=== PATIENT | male | born 1970 | race Caucasian/White ===

== ENCOUNTER → 2023-09-06 | Day surgery (SDC) | payer OTHER ==
[2023-09-04 09:11] VITALS: BMI 22.7
[~2023-09-06] MED LIST: ALPRAZolam 0.25 MG TAB PO PRN; ASPIRIN 325 MG TAB PO STA; HEPARIN SODIUM 1,000 UN/ML (10ML VL) ONE; HEPARIN SODIUM,PORCINE (1 ML) 2,500 UNIT in SODIUM CHLORIDE 0.9% 250 ML IRRIGATION PRN; HEPARIN SODIUM,PORCINE 10,000 UNIT in SODIUM CHLORIDE 0.9% 1,000 ML IRRIGATION PRN; LIDOCAINE 1% INJ 10MG/ML (20 ML MDV) ONE; NITROGLYCERIN SL TABS 0.4 MG TAB SUBLINGUAL PRN; VERAPAMIL 2.5 MG/ML 2 ML AMP ONE; fentaNYL (PF) 50 MCG/ML 2 ML AMP ONE
[2023-09-06] MEDS: ALPRAZolam 0.5 MG TAB PO PRN (09:04)
[2023-09-06] MEDS: SODIUM CHLORIDE 0.9% 1,000 ML in EMPTY BAG 1 BAG IV SCH (09:08)
[2023-09-06 09:25] LABS: Basophils % (A) 1 %; Eosinophils # (A) 0.1 k/uL (0-0.7); Eosinophils % (A) 2 %; HCT 47.3 % (39.0-53.0); Lymphocytes # (A) 1.4 k/uL (1.0-4.8); Lymphocytes % (A) 24 %; MCH 32.3 pg (25.0-35.0); MCHC 33.9 g/dL (31.0-37.0); MCV 95.3 fL (80.0-100.0); Mean Platelet Volume 7.8; Monocytes # (A) 0.5 k/uL (0-1.0); Monocytes % (A) 9 %; Neutrophils # (A) 3.5 k/uL (1.3-7.7); Neutrophils % (A) 62 %; Platelet Count 256 k/uL (150-450); RBC 4.96 m/uL (4.30-5.90); RDW 12.4 % (11.5-15.5); WBC 5.7 k/uL (3.8-10.6)
[2023-09-06 09:40] VITALS: TEMP 98.1
[2023-09-06 09:45] LABS: African American GFR (CKD) >90 (>60 ml/min/1.73 sqM); Anion Gap 5 mmol/L; Blood Urea Nitrogen 14 mg/dL (9-20); Calcium 9.5 mg/dL (8.4-10.2); Carbon Dioxide 28 mmol/L (22-30); Chloride 105 mmol/L (98-107); Glucose 99 mg/dL (74-99); Non-African American GFR(CKD) >90 (>60 ml/min/1.73 sqM); Sodium 138 mmol/L (137-145)
[2023-09-06] MEDS: fentaNYL (PF) 50 MCG/ML 2 ML AMP IVP ONE (10:30)
[2023-09-06] MEDS: MIDAZOLAM 2 MG/2 ML VIAL IVP ONE (10:30)
[2023-09-06] MEDS: LIDOCAINE 1% INJ 10MG/ML (30 ML VIAL-PF) SQ ONE (10:32)
[2023-09-06] MEDS: VERAPAMIL SYRINGE (5 MG/10 ML) INTRAARTER ONE (10:33)
[2023-09-06] MEDS: HEPARIN SODIUM 1,000 UN/ML (10ML VL) IV ONE (10:37)
[2023-09-06] MEDS: IOPAMIDOL-370 100ML BTL INJ ONE (10:59)
[2023-09-06 12:52] VITALS: BP 109/58; PULSE 63; RESP 14
--- NOTE | 2023-09-06 13:38 | P.CARDCATH ---
Date of Procedure: 09/06/23 Description of Procedure: DIAGNOSTIC CORONARY ANGIOGRAPHY and LEFT HEART CATH REPORT PROCEDURES PERFORMED: Left heart catheterization Selective coronary angiography Moderate conscious sedation 30 mins Right radial access INDICATION: Moderate to severe aortic regurgitation. 53-year-old presented to the cardiology clinic because of symptoms of palpitations and lightheadedness dizziness. He had an systolic murmur and a diastolic murmur on physical examination. For this an echocardiogram was done which showed concerns of bicuspid aortic valve with mild aortic stenosis and moderate to severe aortic regurgitation. For this patient underwent a DAXA which showed moderate aortic regurgitation. Cardiac catheterization was done to rule out any obstructive coronary artery disease and to study transaortic gradients and LVEDP before surgical evaluation. CONSENT: I have explained the procedural steps of above-mentioned procedures in layman's terms to the patient. I discussed the risks (including but not limited to stroke, emergent vascular or cardiac surgery or ), benefits and alternative therapies for the above-mentioned procedure. I discussed the risks of sedation/analgesia and blood product administration (if indicated). The patient has indicated understanding and acceptance of these risks. Conscious Sedation: Patient's ECG, heart rate, blood pressure, pulse oximetry were monitored throughout the duration of procedure under my direct supervision. [2] mg Versed and [50] mg Fentanyl were used for induction of moderate conscious sedation. Total duration of moderate concious sedation 30 minutes. PROCEDURE: After explaining the risks, benefits and alternatives of the above mentioned procedures in detail to the patient, informed consent was obtained. Patient was taken to the catheterization lab, prepped and draped in usual sterile fashion using universal precuations. Barbow and stephanie test were performed to confirm adequate perfusion to fingers. Ultrasound was used to identify the radial artery. 1% lidocaine was infiltrated over the right radial artery. A 6-Portuguese sheath was placed and secured in the right radial artery using modified Seldinger technique. The sheath was flushed and 5 mg verapamil was administered intra-arterially. J tipped wire was advanced under fluoroscopic guidance. Once the wire tip reached aortic root 3500 units of IV heparin was given. Over the wire 5 Portuguese Kd catheter was advanced to the aortic root. The wire was removed and the catheter was flushed. Catheter was manipulated to selectively engage the left coronary ostium and left coronary angiogram was performed in different angiographic projections. The catheter was disengaged from the left coronary ostium and was manipulated to selectively engage the right coronary ostium. Right coronary angiogram was performed in different angiographic projections. With the help of the J-wire the Kd catheter was prolapsed across the aortic valve into the left ventricle. The wire was removed catheter was flushed and LV pressures were obtained. And the pullback was performed. We decided to obtain simultaneous aortic and LV pressures with Aragon 6 Portuguese catheter. The Kd catheter was exchanged for Aragon 6 Portuguese pigtail double-lumen catheter over the wire. The catheter was manipulated to cross the aortic valve into the left ventricle. The wire was removed. Simultaneous LV and aortic pressures were obtained and documented. The Lasso catheter was removed over the wire. Radial sheath was flushed. The right radial sheath was removed and a TR band was placed with excellent patent hemostasis was achieved. The patient tolerated the procedure well. Patient was transported back to the post catheterization holding area in stable condition. Angiographic images were reviewed in detail. HEMODYNAMICS: Aortic Pressure: 112/55 mmHg. mean aortic pressure 80 mmHg, heart rate 56 bpm LV pressure: 116/1 mmHg. LVEDP 17 mmHg. There was no significant gradient across the aortic valve. In early diastole aortic pressure drop of 20 mmHg. The pulse pressure is 57 mmHg LVEDP 17 mmHg SELECTIVE CORONARY ARTERIOGRAPHY: LEFT MAIN: The left main is a large caliber vessel which bifurcates into the LAD and circumflex. Left main appears angiographically normal. LEFT ANTERIOR DESCENDING CORONARY ARTERY: LAD is a large caliber vessel which wraps around to the apex. Proximal LAD appears angiographically normal. It gives rise to a diagonal 1 branch which appears angiographically normal. Mid LAD appears angiographically normal. It gives rise to a second diagonal branch which appears angiographically normal. Distal LAD appears angiographically normal. It gives rise to 2 small diagonal branches which appear angiographically normal. LEFT CIRCUMFLEX CORONARY ARTERY: It is nondominant vessel. Left circumflex is a moderate caliber vessel. It appears angiographically normal. It gives rise to 3 medium size OM branch which appears angiographically normal. RIGHT CORONARY ARTERY: Dominant vessel. The right coronary artery is a large caliber vessel which gives PDA and PLV branch. It appears angiographically normal. IMPRESSION: Angiographically normal coronary arteries as described above. Mildly elevated LVEDP at 17 mmHg Moderate aortic regurgitation with pulse pressure 57 mmHg, early diastolic aortic pressure drop of 20 mmHg PLAN: Aggressive risk factor modification per most recent ACC/AHA guidelines. 150 cc fluids for 4 hours Discharge home in 4 hours Follow-up in the office in 1-2 weeks. Performing Physician Jalen Hartley MD, FACC, RPVI Thank you for allowing [facility] to participate in is patient's care. Feel free to reach out in case of any followup questions.
== END ==
LOC: CATHCVL 08:42
PROVIDERS: ATTEND Student in an Organized Health Care Education/Training Program
DX: I35.1 Nonrheumatic aortic (valve) insufficiency (principal)
CPT/HCPCS: 93458; 76937; 80048; 85025; C1769; J2250; J2001; J3010; J1644; Q9967